=== PATIENT | male | born 1985 | race Two or more races ===

== ENCOUNTER → 2016-10-13 | Outpatient (CLI) | payer OTHER ==
--- NOTE | ~2016-10-13 | NM22 ---
[facility] A Service of [facility] & [facility] RADIOLOGY TEXT RESULTS PATIENT: JAMIR MORSE LOCATION: [facility] : 87 UNIT #: [id number] AGE: [address]: Chris Buchanan MD SEX: M ORDER DR: [id number] [facility] [address] [place], [place] [address] [id number] O MR#: [id number] Acc #: [id number] NAME: JAMIR MORSE : 1985 SEX: M STUDY DATE/TIME: 10/13/2016 12:20 UNIT: [facility] ROOM: STUDY DESCRIPTION: AK Hepatobiliary W GB Pharm Attending Physician: Chris Buchanan M.D. Referring Physician: Chris Buchanan M.D. Ordering Physician: Chris Buchanan M.D. Primary Care Physician: No Primary Care Physician MEDICAL IMAGING REPORT This report is preliminary unless electronic signature is present EXAM HIDA scan with Kinevac CCK 10/13/2016 HISTORY Epigastric abdominal pain and gastritis, stomach swelling and bloating, gastroesophageal reflux disease, symptoms for 3 years. FINDINGS The patient received an intravenous injection of 5.76 mCi of technetium-99m tagged Choletec for hepatobiliary imaging. One hour following the injection of the radiopharmaceutical, the patient received an intravenous injection of 1.3 mcg of Kinevac. There is homogeneous distribution of the radiotracer throughout the liver. Gallbladder activity was seen by 15 minutes postinjection of the radiopharmaceutical. Following Kinevac injection, the gallbladder ejection fraction was 94.1% (normal is greater than 30%). IMPRESSION Normal HIDA scan with gallbladder ejection fraction of 94.1%. Dictated by... Tj Sotelo M.D. THIS IS AN ELECTRONICALLY VERIFIED REPORT Tj Sotelo M.D. at 10/14/2016 2:15 PM KRT/esmer TD: 10/13/2016 20:32 JOB #: [id number] MEDICAL IMAGING REPORT Page 1 of 1 COPY
== END | disposition home or self-care (01) ==
LOC: CNUC 11:42
DX: K21.9 Gastro-esophageal reflux disease without esophagitis (principal); K31.89 Other diseases of stomach and duodenum; R10.13 Epigastric pain; R14.0 Abdominal distension (gaseous)
CPT/HCPCS: 78227; A9537; J2805